=== PATIENT | female | born 2000 | race Hispanic/Latino ===

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

== ENCOUNTER 2019-02-07 17:15 | Emergency (ER) | payer MEDICAID, OTHER ==
[2019-02-07] MEDS ORDERED: LEVOFLOXACIN 500 MG TABLET ONE (17:42)
[2019-02-07] MEDS ORDERED: DICYCLOMINE HCL 20 MG TAB ONE (17:42)
== END 2019-02-07 17:53 | disposition home or self-care (01) ==
LOC: EDH 17:15
DX: R19.7 Diarrhea, unspecified (principal)

== ENCOUNTER 2021-02-08 14:37 | Emergency (ER) | payer OTHER ==
[~2021-02-08] VITALS: Ht 172.7 cm; Wt 68.0 kg
[2021-02-08] MEDS ORDERED: ONDANSETRON 4MG TABLET ONE (15:00)
[2021-02-08] MEDS ORDERED: ONDANSETRON 4MG TABLET PO ONE (15:00)
[2021-02-08] MEDS ORDERED: ACETAMINOPHEN 500 MG TABLET ONE (15:00)
[2021-02-08] MEDS ORDERED: ACETAMINOPHEN 500 MG TABLET PO ONE (15:00)
[2021-02-08 15:23] LABS: HCG,QUAL RESULT NEGATIVE (NEGATIVE)
[2021-02-08 15:24] LABS: APPEARANCE,URINE CLEAR (CLEAR); BILIRUBIN,URINE NEGATIVE (NEGATIVE); COLOR,URINE YELLOW (YELLOW); GLUCOSE, URINE (UA) NEGATIVE (NEGATIVE); KETONES,URINE NEGATIVE (NEGATIVE); LEUKOCYTE ESTERASE ,URINE NEGATIVE (NEGATIVE); NITRATE,URINE NEGATIVE (NEGATIVE); OCCULT BLOOD,URINE LARGE (NEGATIVE); PH,URINE 6.5 (5.0-8.0); PROTEIN,URINE NEGATIVE (NEGATIVE); UROBILINOGEN,URINE 0.2 mg/dL (0.2-1.0)
[2021-02-08 15:31] LABS: BACTERIA,URINE Rare /HPF (None Seen); SQUAMOUS EPITHELIAL CELL,UR Rare /HPF (0-2)
[2021-02-08 15:32] LABS: URIC ACID CRYSTALS,URINE Few /LPF (None Seen)
[2021-02-08 15:35] VITALS: BP 107/71
[2021-02-08] MEDS ORDERED: ONDA4TAB4 PO (15:39)
[2021-02-08] MEDS ORDERED: AZIT250T9 PO (15:39)
[2021-02-08] MEDS ORDERED: PSEU120T62 PO (15:39)
[2021-02-08] MEDS ORDERED: IBUP-2070 PO (15:39)
== END 2021-02-08 15:48 | disposition home or self-care (01) ==
LOC: EDH 14:37
DX: J01.00 Acute maxillary sinusitis, unspecified (principal); Z20.822 Contact with and (suspected) exposure to COVID-19; Z79.899 Other long term (current) drug therapy
CPT/HCPCS: 81001; 81025; 87077; 87088; 87186; 87635; 87804 ×2; 87880; 99283; C9803; Q0162

== ENCOUNTER 2022-08-28 14:28 | Emergency (ER) | payer OTHER ==
[~2022-08-28] VITALS: Ht 172.7 cm; Wt 72.6 kg
[~2022-08-28 14:28] MED LIST: AZIT250T9 PO; IBUP-2070 PO; ONDA4TAB4 PO; PSEU120T62 PO
[2022-08-28 14:39] VITALS: BP 121/72
[2022-08-28 15:34] LABS: BASOPHILS % (AUTO) 0.4 % (0.0-5.0); EOSINOPHILS % (AUTO) 1.3 % (0.0-8.0); LYMPHOCYTES % (AUTO) 26.5 % (21.0-51.0); MEAN CORPUSCULAR HEMOGLOBIN 28.3 pg (27.0-33.0); MEAN CORPUSCULAR HGB CONC 33.2 g/dL (32.0-36.0); MEAN CORPUSCULAR VOLUME 85.1 fL (79-99); MONOCYTES % (AUTO) 6.5 % (3.0-13.0); PLATELET COUNT (AUTO) 278 K/uL (130-400); RED BLOOD CELL COUNT(AUTO) 4.35 MIL/uL (4.00-5.50); RED CELL DISTRIBUTION WIDTH 13.1 % (11.0-15.5); WHITE BLOOD COUNT (AUTO) 8.9 K/uL (4.8-10.8)
[2022-08-28 15:37] LABS: APPEARANCE,URINE CLEAR (CLEAR); BILIRUBIN,URINE NEGATIVE (NEGATIVE); COLOR,URINE LIGHT-YELLOW (YELLOW); GLUCOSE, URINE (UA) NEGATIVE (NEGATIVE); KETONES,URINE NEGATIVE (NEGATIVE); LEUKOCYTE ESTERASE ,URINE 25 Leu/uL (NEGATIVE); NITRATE,URINE NEGATIVE (NEGATIVE); PH,URINE 6.5 (5.0-8.0); PROTEIN,URINE NEGATIVE (NEGATIVE); UROBILINOGEN,URINE 0.2 mg/dL (0.2-1.0)
[2022-08-28 15:43] LABS: BACTERIA,URINE RARE /HPF (None Seen); MUCUS,URINE RARE LPF (None Seen); SQUAMOUS EPITHELIAL CELL,UR MOD /HPF (0-2); YEAST,URINE BUDDING RARE /HPF (None Seen)
[2022-08-28 15:45] LABS: CARBON DIOXIDE 27 mmol/L (21-32); CHLORIDE 103 mmol/L (101-111); CREATININE 0.7 mg/dL (0.5-1.5); GLOMERULAR FILTR. RATE CALC 125 mL/min (>90); GLUCOSE,RANDOM 93 mg/dL (70-105); POTASSIUM 3.6 mmol/L (3.5-5.1); SODIUM SERUM 137 mmol/L (136-145); UREA NITROGEN, BLOOD 10 mg/dL (7-18)
[2022-08-28 15:50] LABS: ALANINE AMINOTRANSFERASE 27 U/L (12-78); ALBUMIN 3.8 g/dL (3.5-5.0); ASPARTATE AMINOTRANSFERASE 15 U/L (10-37); TOTAL PROTEIN, SERUM 7.4 g/dL (6.0-8.3)
[2022-08-28 15:52] LABS: HCG,QUALITATIVE URINE NEGATIVE (NEGATIVE)
[2022-08-28 15:53] LABS: LIPASE < 50 U/L (114-286)
[2022-08-28] MEDS ORDERED: CEPH500B PO (16:29)
[2022-08-28 17:15] LABS: AMPHET/METH SCREEN,URINE NEGATIVE (NEGATIVE); BARBITURATE SCREEN, URINE NEGATIVE (NEGATIVE); BENZODIAZEPINES SCREEN,URINE NEGATIVE (NEGATIVE); CANNABINOID SCREEN,URINE NEGATIVE (NEGATIVE); COCAINE SCREEN,URINE NEGATIVE (NEGATIVE); OPIATE SCREEN,URINE NEGATIVE (NEGATIVE); PHENCYCLIDINE SCREEN,URINE NEGATIVE (NEGATIVE)
== END 2022-08-28 16:43 | disposition home or self-care (01) ==
LOC: EDH 14:28
DX: N39.0 Urinary tract infection, site not specified (principal); R10.31 Right lower quadrant pain
CPT/HCPCS: 36415; 80053; 80305; 81001; 81025; 83690; 85025